=== PATIENT | male | born 1955 | race Asian ===

== ENCOUNTER 2017-08-02 11:08 | Observation (INO) | payer BC ==
[2017-08-02] MEDS ORDERED: Adacel (T-DAP) 0.5 ML VIAL ONE (11:26)
[2017-08-02] MEDS ORDERED: CEFAZOLIN/Water 2 GM/20 ML SYRINGE ONE ×2 (11:26→16:35)
[2017-08-02] MEDS ORDERED: Morphine 4 MG/ML VIAL ONE (11:30)
[2017-08-02 11:42] LABS: #Basophils 0.1 thou/uL (0.0-0.2); #Eosinphils 0.2 thou/uL (0.0-0.7); #Lymphocytes 2.4 thou/uL (1.20-3.40); #Monocytes 1.4 thou/uL (0.11-0.59); #Neutrophils 9.4 thou/uL (1.40-6.50); %Basophils 0.7 % (0.0-1.0); %Eosinophils 1.1 % (0.0-10.0); %Lymphocytes 18.1 % (21.0-51.0); %Monocytes 10.3 % (0.0-10.0); %Neutrophils 69.7 % (42.0-75.0); Mean Corpuscular HGB CONC 33.4 g/dL (32.0-36.0); Mean Corpuscular Hemoglobin 32.2 pg (27.0-31.0); Mean Corpuscular Volume 96.6 fl (80.0-94.0); Mean Platelet Volume 7.3 fL (7.4-10.4); Platelet Count 229 thou/uL (130-400); RBC Distribution Width 11.4 % (11.5-14.5); Red Blood Cell (RBC) Count 4.03 mill/uL (4.70-6.10); White Blood Cell (WBC) Count 13.5 thou/uL (4.8-10.8)
[2017-08-02 12:02] LABS: ALT (SGPT) 20 U/L (8-55); AST (SGOT) 26 U/L (5-34); Albumin 3.9 g/dL (3.5-5.0); Alcohol Less than 10 mg/dL (Less than 10); Alkaline Phosphatase 50 U/L (40-150); Anion Gap 14 mmol/L (10-20); BUN (Urea Nitrogen) 23 mg/dL (8.4-25.7); Bilirubin, Total 0.6 mg/dL (0.2-1.2); Calc. Creatinine Clearance 0 mL/min (70-130); Calcium 8.4 mg/dL (7.8-10.44); Carbon Dioxide 19 mmol/L (22-29); Chloride 109 mmol/L (98-107); Estimated GFR-MDRD Greater than 90; Globulin 2.8 g/dL (2.4-3.5); Glucose 96 mg/dL (70-105); Potassium 4.1 mmol/L (3.5-5.1); Protein, Total 6.7 g/dL (6.0-8.3); Sodium 138 mmol/L (136-145)
--- NOTE | 2017-08-02 12:02 | RAD ---
RIGHT HAND 3 VIEWS: HISTORY: A 61-year-old male with a history of right hand pain following an injury from a fall and trauma. Arthrosis and degenerative changes are noted, particularly involving the 4th proximal interphalangeal joint. No acute fracture or dislocation. IMPRESSION: Degenerative and arthrosis changes without acute fracture or dislocation. POS: [facility]
--- NOTE | 2017-08-02 12:02 | RAD ---
UPRIGHT PORTABLE CHEST 1 VIEW: Date: 08/02/17 HISTORY: Preoperative evaluation for open right ankle fracture. FINDINGS: Monitor leads overlie the chest. Heart size is within normal limits. Minimal linear and parenchymal c hanges in the left base, which appear to be chronic. Atherosclerosis of aorta. IMPRESSION: Minimal linear chronic changes in the left base. Atherosclerosis of aorta. No evidence for pneumonia or other significant acute process. POS: [facility]
--- NOTE | 2017-08-02 12:05 | RAD ---
RIGHT TIBIA AND FIBULA TWO VIEWS: History: 61-year-old male with history of right ankle open fracture from trauma. FINDINGS: Two views of the right tibia and fibula demonstrate a very markedly comminuted, markedly displaced fr acture of the distal tibial metadiaphysis with what appears to be an associated open wound. There is also slightly comminuted fracture of the proximal fibula diaphysis. There is some resultant foreshort ening. IMPRESSION: Markedly displaced foreshortened comminuted distal tibial metadiaphyseal fracture with probable assoc iated open injury. Comminuted fracture of the proximal fibular diaphysis with some foreshortening. POS: [facility]
[2017-08-02] MEDS ORDERED: CEFAZOLIN/Water 2 GM/20 ML SYRINGE SLOW IVP SCH (12:15)
--- NOTE | 2017-08-02 13:35 | HP ---
DATE OF ADMISSION: 08/02/2017 REQUESTING SURGEON: Ken Nelson M.D. ATTENDING SURGEON: Dr. Butler. CONSULTATION: Orthopedics, Dr. Hernandez. HISTORY OF PRESENT ILLNESS: The patient is a 61-year-old man who was carrying some things in his pantoja ds walking backwards when he tripped and fell and he believes caught his right foot and ankle on some thing fell and twisted his right lower extremity. The patient experienced immediate pain with right lower extremity and was unable to ambulate as he was able to and someone from his family called 911. The patient was brought to the Emergency Department, evaluated, examined and noted to have an open r ight tibia and fibular fracture. Remainder of his exams are unremarkable. At that time we were aske d to admit the patient and obtain orthopedic consultation. The patient denied loss of consciousness, shortness of breath, chest pain, or any syncopal type symptoms prior to his fall. ALLERGIES: None. CURRENT MEDICATIONS: The patient takes home remedies from [place] and uses an inhaler, he is unsure of what the name of it is, otherwise no medications. PAST SURGICAL HISTORY: Thyroidectomy. PAST MEDICAL HISTORY: None. SOCIAL HISTORY: The patient quit smoking more than two decades ago. Denies drug use. 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 FAMILY HISTORY: Noncontributory. REVIEW OF SYSTEMS: A 12-point review of systems was negative as otherwise stated. PHYSICAL EXAMINATION: VITAL SIGNS: Blood pressure 159/65, heart rate 56, respirations 14, temperature is 98.0, oxygen satu ration 95% on room air. GENERAL: The patient is resting comfortably in bed. He is awake, alert, and oriented x3. Jet c jojo scale is 15. The patient primarily speaks [place]. His family members are at bedside to help translate. HEENT: Head is normocephalic, atraumatic. Eyes: Extraocular motion intact. PERRLA bilaterally. E ars are atraumatic without discharge. Nose is atraumatic without discharge. Oropharynx is clear. NECK: Nontender. Trachea is midline. No JVD. CHEST: Clear to auscultation with good inspiratory and expiratory effort. HEART: Regular rate and rhythm. ABDOMEN: Soft, flat, nontender with active bowel sounds. Pelvis is stable. EXTREMITIES: Neurovascularly intact x4. The right lower extremity is immobilized in L and U splint. By report, the patient had a small puncture wound noted to the medial aspect of his distal fibula c onsistent with the fracture spike noted on x-ray. BACK: Nontender and atraumatic. LABORATORY DATA: White blood cell count 13.5, hemoglobin 13.0, hematocrit 38.9, and platelets 229. Sodium 138, potassium 4.1, chloride 109, CO2 19, BUN 23, creatinine 0.79, and glucose 96. LFTs are u nremarkable. Blood alcohol less than 10. RADIOGRAPHS: Three views of the right hand showed no fracture, dislocations or acute findings. Two views of the right leg show a comminuted proximal fibular fracture and a comminuted spiral distal tib ia fracture. ASSESSMENT AND PLAN: 1. Status post ground level fall. 2. Grade I comminuted distal tibia fracture. 3. Comminuted proximal fibular fracture. Plan will be to admit the patient to the surgical floor after discussion with Orthopedics. They woul d like him to go to the day stay and then to the surgical floor. The patient was given 2 grams of An cef and updated tetanus in the emergency department. Once on the floor, we will continue pain contro l, physical and occupational therapy and diet as tolerated. Evaluation examination, laboratory and r adiographic findings were discussed with him. The patient was examined with Dr. Butler in the emergen cy department. All were in agreement with this plan.
--- NOTE | 2017-08-02 13:46 | CON ---
DATE OF CONSULTATION: 08/02/2017 REASON FOR CONSULTATION: We were asked by Trauma and emergency room to see patient. HISTORY OF PRESENT ILLNESS: The patient was walking on a board today and slipped off the board perla shepard on his right lower extremity and sustaining a fracture to the proximal third of the fibula and dis roberto carlos aspect of the tibia. He does have a puncture wound at the distal area of the tibia where family who is interpreting for him said there was bone visible. The patient is otherwise healthy. He feels that there is a little bit of tingling in his toes, but he is moving them well. and daughter a re at the bedside. There were no other fractures during the surgery, but he did have some right hand pain which was x-rayed and found to be non-fractured and a chest x-ray. He has a history of some sh ortness of breath and mild asthma. Otherwise, per who is interpreting, his mentation is intact. PAST MEDICAL HISTORY: Positive for cholesterol, some asthma, and thyroid. CURRENT MEDICATIONS: He takes an OTC [place] pain reliever like a Tylenol per the . ALLERGIES: None. PAST SURGICAL HISTORY: He has had his thyroid surgery in 2003. FAMILY HISTORY: Noncontributory. SOCIAL HISTORY: He works on a chicken farm, quit smoking in the s, has a glass of red wine a night . No drug use. REVIEW OF SYSTEMS: Denies any chest pain, shortness of breath currently. His main complaint is a li ttle bit of right palmar aspect hand pain and pain in that right lower extremity and a little bit of tingling in the toes, but again movement is fine. PHYSICAL EXAMINATION: GENERAL: Well-nourished male resting in bed. is interpreting. Speech clear, fluent. He is or iented. HEENT: Normal exam. NECK: Supple, scar seen from previous thyroid surgery. EXTREMITIES: Upper extremities, he is moving these well. Palpation of the hand does elicit a little bit of pain over the thenar palmar aspect, but he can move his hand well. He has bilateral strength s are intact to the upper extremities as are sensations. Lower extremities, left lower extremity nor mal findings. Right lower extremity is already splinted, but he has good sensations and movement per his , states they feel a little tingly. LABORATORY AND X-RAY FINDINGS: Showed a distal right tibial fracture and proximal third fibular frac ture. CBC: White blood cell count 13.5, RBC 4.03, hemoglobin 13, hematocrit 38.9, and platelets 229 . Chemistry, chloride 109, carbon dioxide 19. ASSESSMENT: Fall with ensuing open fracture tibia-fibula. PLAN: He has gotten some antibiotics in the emergency room. His tetanus was updated. Leg is splint ed. He appears comfortable right now. I spoke with who is interpreting for patient. We will n eed to get this fixed him and would like to add them on this afternoon. I explained the procedure of an open reduction and internal fixation. This was interpreted to the patient and he is amenable to go forth with surgery. The risks and benefits have been explained and he will probably need to stay in the hospital for at least a day for antibiotic coverage and this has all been explained to the meena peacock. We will get him consented, send him up to day stay. This is Bg Marina PA-C dictating for Dr. Jori Hernandez.
[2017-08-02] MEDS ORDERED: Glycopyrrolate 0.2 MG/ML 5 ML SYRINGE ONE (15:22)
[2017-08-02] MEDS ORDERED: PROPOFOL 200 MG/20 ML VIAL ONE (15:22)
[2017-08-02] MEDS ORDERED: Lidocaine 1% PF 5 ML VIAL ONE (15:22)
[2017-08-02] MEDS ORDERED: Dexamethasone 20 MG/5 ML VIAL ONE (15:22)
[2017-08-02] MEDS ORDERED: ePHEDrine/0.9% NaCl/PF SYRINGE 50 mg/10 ml ONE (15:22)
[2017-08-02] MEDS ORDERED: Fentanyl 250 MCG/5 ML VIAL ONE (16:03)
[2017-08-02] MEDS ORDERED: Neomycin-Polymyxin 1 ML AMP ONE (16:56)
[2017-08-02] MEDS ORDERED: HYDROmorphone 2 MG/ML VIAL SLOW IVP PRN (17:51)
[2017-08-02] MEDS ORDERED: Morphine Sulfate 2 MG/ML SYRINGE SLOW IVP PRN (17:51)
[2017-08-02] MEDS ORDERED: Meperidine HCl/PF 25 MG/ML VIAL SLOW IVP PRN (17:51)
[2017-08-02] MEDS ORDERED: Promethazine HCl 25 MG/ML VIAL SLOW IVP PRN (17:51)
[2017-08-02] MEDS ORDERED: Ondansetron HCl/PF 4 MG/2 ML Vial IVP PRN ×2 (17:51→19:56)
[2017-08-02] MEDS ORDERED: Albuterol Sulfate 2.5 mg/3 ml Neb NEB PRN (17:52)
[2017-08-02] MEDS ORDERED: Fentanyl 100 MCG/2 ML VIAL ONE (18:58)
--- NOTE | 2017-08-02 19:54 | RAD ---
RIGHT FORELEG TWO VIEWS: 08/02/2017 PROVIDED CLINICAL HISTORY: Postoperative change. FINDINGS: Spot fluoroscopic frontal and lateral views of the right foreleg demonstrate an antegrade intramedull sean tibial nail transfixing the distal tibial metadiaphyseal region fracture. Associated proximal an d distal interlocking screws. Proximal fibula shaft fracture noted. IMPRESSION: As above. POS: [facility]
[2017-08-02] MEDS ORDERED: Sodium Chloride 0.9% 1,000 ML IV SCH (19:56)
[2017-08-02] MEDS ORDERED: Dextrose 5% in Water 1,000 ML IV PRN (19:56)
[2017-08-02] MEDS ORDERED: Dextrose 50% Abboject 50 ML SYRINGE SLOW IVP PRN (19:56)
[2017-08-02] MEDS ORDERED: traMADol HCl 50 MG TAB PO PRN ×2 (19:56)
[2017-08-02] MEDS ORDERED: Morphine 4 MG/ML VIAL SLOW IVP PRN (19:56)
[2017-08-02] MEDS ORDERED: Acetaminophen 325 MG TAB PO PRN (19:56)
[2017-08-02] MEDS ORDERED: Ondansetron ODT 4 MG TAB PO PRN (19:56)
[2017-08-02] MEDS ORDERED: Morphine 4 MG/ML VIAL IV PRN (19:56)
[2017-08-02] MEDS: Famotidine 20 MG TAB PO SCH (20:42)
[2017-08-02 23:52] VITALS: BMI 23.7
[2017-08-03] MEDS: CEFAZOLIN/Water 2 GM/20 ML SYRINGE SLOW IVP SCH ×3 (00:09→16:20)
[2017-08-03 06:08] LABS: #Lymphocytes 1.3 thou/uL (1.20-3.40); #Monocytes 1.2 thou/uL (0.11-0.59); #Neutrophils 10.3 thou/uL (1.40-6.50); %Basophils 0.1 % (0.0-1.0); %Eosinophils 0.2 % (0.0-10.0); %Lymphocytes 10.4 % (21.0-51.0); %Monocytes 9.3 % (0.0-10.0); Mean Corpuscular HGB CONC 33.2 g/dL (32.0-36.0); Mean Corpuscular Hemoglobin 32.5 pg (27.0-31.0); Mean Corpuscular Volume 97.9 fl (80.0-94.0); Mean Platelet Volume 7.3 fL (7.4-10.4); Platelet Count 206 thou/uL (130-400); RBC Distribution Width 11.5 % (11.5-14.5); Red Blood Cell (RBC) Count 3.39 mill/uL (4.70-6.10); White Blood Cell (WBC) Count 12.9 thou/uL (4.8-10.8)
[2017-08-03 06:29] LABS: Anion Gap 12 mmol/L (10-20); BUN (Urea Nitrogen) 16 mg/dL (8.4-25.7); Calc. Creatinine Clearance 92 mL/min (70-130); Calcium 7.9 mg/dL (7.8-10.44); Carbon Dioxide 23 mmol/L (22-29); Chloride 106 mmol/L (98-107); Estimated GFR-MDRD Greater than 90; Glucose 134 mg/dL (70-105); Potassium 4.1 mmol/L (3.5-5.1); Sodium 137 mmol/L (136-145)
[2017-08-03] MEDS: Famotidine 20 MG TAB PO SCH (08:25)
[2017-08-03] MEDS ORDERED: Aspirin 81 mg Enteric Coated Tablet PO SCH (09:00)
[2017-08-03] MEDS ORDERED: Ibuprofen 200 MG TAB PO SCH (14:00)
[2017-08-03 15:25] VITALS: BP 145/74; TEMP 97.8
--- NOTE | 2017-08-03 15:29 | OP ---
DATE OF SURGERY: 08/02/2017 PREOPERATIVE DIAGNOSIS: Grade I open right tib-fib fracture. POSTOPERATIVE DIAGNOSIS: Grade I open right tib-fib fracture. SURGICAL PROCEDURES: 1. Intramedullary nail stabilization of right distal tibia fracture. 2. Irrigation of right distal tibia open fracture. ANESTHESIA: General. SURGEON: Jori Hernandez M.D. WEB APPLICATION DEV SPECIALIST: Ruth Ann French PA-C ESTIMATED BLOOD LOSS: 50 mL IMPLANTS: A Synthes X nail measuring 10 x 315 mm with three distal cross lock screws and a single pr oximal cross lock screw. COMPLICATIONS: None. DRAINS: None. SPECIMENS: None. OUTCOME: Satisfactory. INDICATIONS: The patient is a pleasant 61-year-old gentleman status post injury sustaining a right g rade I open tib-fib fracture. The patient has had a tetanus booster and has obtained preoperative an tibiotics consisting of Ancef and is now scheduled for intramedullary nail stabilization of the right tibia. Informed consent has been obtained and I believe all questions have been answered. DESCRIPTION OF PROCEDURE: The patient was brought to the operating room and a timeout performed foll owed by induction of general anesthesia. Next, the patient was positioned on the fracture table with the well leg held in extension and the injured extremity held over a bolster with traction applied. A sterile prep and drape was then performed of the right lower extremity. The small traumatic wound that measured under 1 cm in length was found to be clean with no necrotic skin edge and as such just a thorough irrigation was performed of the small wound. A total of 3 liters was used during the cou rse of this case for irrigation. Next, a midline anterior knee incision was made over the patellar t endon. After skin was sharply incised, dissection was carried down bluntly to the underlying periten on. The peritenon was incised in line with the skin incision and then reflected medially and lateral ly. Next, a medial parapatellar tendon approach to the proximal tibia was chosen. A Kuntscher awl w as used to obtain a starting point for the nail placement. This was followed by passage of ball-tipp ed guidewire down the shaft of the tibia across the fracture in the distal tibial metaphysis. Next, reaming was started at 8.5 mm and continued up to 11 mm with good bony chatter starting at 9.5 mm. N ext, a 10 x 315 mm tibial nail was inserted over the ball-tipped guidewire passed down the shaft of t he tibia across the fracture in the distal tibial metaphysis. Next, the ball-tipped guidewire was re moved and once the fracture had been adjusted, 3 small stab wounds were made and distal cross-locking was performed with freehand technique. Once appropriately locked, final AP and lateral C-arm images were obtained. A single proximal cross lock screw was then placed from medial to lateral in static fashion. Next, the jig was removed from the nail. The nail was found to be just below the surface o f the bone and felt to be of acceptable length. At this point, the small stab wounds from the cross lock screws were again irrigated and then closed with vannesa. The traumatic wound also closed with a single layer of vannesa. The midline anterior knee incision was closed in layers with 0 Vicryl for the peritenon, #2-0 Vicryl subcutaneously, and vannesa for the skin. A Xeroform gauze, Webril, and short leg posterior fiberglass splint was applied to the leg and then patient was transferred to [facility] room in stable condition. There were no complications and the patient tolerated the procedure w ell.
== END 2017-08-03 17:10 | disposition home or self-care (01) ==
LOC: ERS 11:08 → SDC 12:55 → ERS 12:55 → INTOOBSV 19:32 → SURG A 19:32
PROVIDERS: ADMIT Surgery; ATTEND Surgery
PROC: 0QSJ06Z Reposition Right Fibula with Intramedullary Internal Fixation Device, Open Approach (ICD-10-PCS; principal; 2017-08-03)
PROC: 0QSG06Z Reposition Right Tibia with Intramedullary Internal Fixation Device, Open Approach (ICD-10-PCS; 2017-08-03)
DX: S82.391B Other fracture of lower end of right tibia, initial encounter for open fracture type I or II (principal); S82.451B Displaced comminuted fracture of shaft of right fibula, initial encounter for open fracture type I or II; E89.0 Postprocedural hypothyroidism; E78.00 Pure hypercholesterolemia, unspecified; J45.909 Unspecified asthma, uncomplicated; Z79.899 Other long term (current) drug therapy; Z87.891 Personal history of nicotine dependence; W01.0XXA Fall on same level from slipping, tripping and stumbling without subsequent striking against object, initial encounter
CPT/HCPCS: 27752; 36415; 71045; 76001; 80048; 80053; 80307; 85025; 90471; 90715; 96361; 96374; 96375; 96376; 99292; C1713; C1769; G0378; G0390; G8978-GP-CI; G8979-GP-CI; G8980-GP-CI; G8987-GO-CI; G8988-GO-CI; J1100; J2001; J2270; J2704; J3010

== ENCOUNTER 2017-12-28 14:05 | Outpatient (CLI) | payer OTHER ==
--- NOTE | 2017-12-28 15:42 | RAD ---
RIGHT TIBIA AND FIBULA TWO VIEWS: History: 61-year-old male with history of intramedullary ever in right tibia and fibula. FINDINGS: Intramedullary ever is noted in place stabilizing the tibia with evidence for healed distal diaphyseal fracture as well as a healed proximal mid fibular fracture. IMPRESSION: Intramedullary ever stabilizing an essentially healed distal tibial fracture as well as a healed proxi mal mid fibular fracture without malalignment. No new fracture or dislocation. POS: [facility]
== END 2017-12-28 14:06 | disposition home or self-care (01) ==
LOC: RAD-FRANK 14:05
PROVIDERS: ATTEND Nurse Practitioner Family
DX: M79.604 Pain in right leg (principal); Z87.81 Personal history of (healed) traumatic fracture; Z98.890 Other specified postprocedural states

== ENCOUNTER 2018-03-25 07:31 | Outpatient (CLI) | payer OTHER ==
--- NOTE | 2018-03-25 08:13 | RAD ---
LEFT LEG TWO VIEWS: HISTORY: Left leg pain. Wound. Cellulitis. FINDINGS: The left tibia and fibula are intact. No bony destruction or periosteal reaction is seen to suggest osteomyelitis. POS: [facility]
== END 2018-03-25 07:32 | disposition home or self-care (01) ==
LOC: RAD-FRANK 07:31
PROVIDERS: ATTEND Nurse Practitioner Family
DX: L03.116 Cellulitis of left lower limb (principal)

== ENCOUNTER 2021-09-09 15:34 | Outpatient (CLI) | payer OTHER | END 2021-09-09 15:35 | disposition home or self-care (01) | LOC: RAD-FRANK 15:34 | PROVIDERS: ATTEND Nurse Practitioner Family | DX: M25.511 Pain in right shoulder (principal) ==